=== PATIENT | female | born 1945 | race Two or more races ===

== ENCOUNTER 2020-01-25 11:12 | Inpatient (IN) | payer OTHER, MEDICARE ==
[~2020-01-25] VITALS: Wt 64.2 kg
[~2020-01-25 11:12] MED LIST: Aspirin EC81 MG PO
[2020-01-25] MEDS ORDERED: LISI5 PO (11:22)
[2020-01-25 13:30] LABS: International Normalized Ratio 1.02; Prothrombin Time Results 10.9 Sec (9.7-11.5)
[2020-01-25 13:38] LABS: Alanine Aminotransfer (ALT/SGP 59 U/L (12-78); Albumin, Blood 4.1 g/dL (3.4-5.0); Albumin/Globulin Ratio 1.1 (0.8-1.8); Alk Phos 85 U/L (50-136); Anion Gap 6 mmol/L (6-16); Aspartate Aminotrans (AST/SGOT 44 U/L (12-37); Bilirubin, Total 0.8 mg/dL (0.1-1.0); Blood Urea Nitrogen 20 mg/dL (8-24); Bun/Creatinine Ratio 28.8 (12.0-20.0); CO2, Blood 26 mmol/L (21-32); Calcium, Blood 9.4 mg/dL (8.5-10.1); Chloride, Blood 106 mmol/L (98-108); Creatinine, Blood 0.69 mg/dL (0.40-1.00); Globulin, Blood 3.9 g/dL (2.2-4.0); Glomerular Filtration Rate >60 (60-); Glucose, Blood 98 mg/dL (70-99); Potassium, Blood 4.1 mmol/L (3.5-5.5); Sodium, Blood 138 mmol/L (136-145); Troponin I <0.015 ng/mL (0.000-0.040)
[2020-01-25 13:44] LABS: Thyroid Stimulating Hormone 0.949 uIU/mL (0.360-4.800)
[2020-01-25 15:23] LABS: BASOPHILS ABSOLUTE AUTO 0.02 K/mm3 (0.00-0.23); BASOPHILS PERCENT AUTO 0 % (0-2); EOSINOPHILS ABSOLUTE AUTO 0.03 K/mm3 (0.00-0.68); EOSINOPHILS PERCENT AUTO 0 % (0-6); Hematocrit 49.7 % (33.0-51.0); Hemoglobin 16.7 g/dL (11.5-16.0); IMMATURE GRAN ABSOLUTE AUTO 0.02 K/mm3 (0.00-0.10); IMMATURE GRAN PERCENT AUTO 0 % (0-1); LYMPHOCYTES ABSOLUTE AUTO 1.02 K/mm3 (0.84-5.20); LYMPHOCYTES PERCENT AUTO 13 % (21-46); MONOCYTES ABSOLUTE AUTO 0.55 K/mm3 (0.16-1.47); MONOCYTES PERCENT AUTO 7 % (4-13); Mean Corpuscular HGB 31.1 pg (26.0-34.0); Mean Corpuscular HGB Conc 33.6 g/dL (31.5-36.5); Mean Corpuscular Volume 93 fL (80-100); Mean Platelet Volume 10.7 fL (9.1-12.4); NEUTROPHILS ABSOLUTE AUTO 6.08 K/mm3 (1.96-9.15); NEUTROPHILS PERCENT AUTO 79 % (41-73); Platelet Count 180 K/mm3 (150-400); RDW Coefficient Variation 12.9 % (11.7-14.2); RDW Standard Deviation 44.4 fL (35.1-46.3); Red Blood Cell Count 5.37 M/mm3 (3.80-5.20); White Blood Cell Count 7.72 K/mm3 (4.00-11.30)
--- NOTE | 2020-01-25 17:59 | NUR ---
Met with pt and dtr. Pt anxious and talkative. She responded well to gentle spiritual direction and prayer. [facility] will remain available.
[2020-01-26 05:00] LABS: Anion Gap 6 mmol/L (6-16); Blood Urea Nitrogen 19 mg/dL (8-24); CO2, Blood 25 mmol/L (21-32); Calcium, Blood 8.2 mg/dL (8.5-10.1); Chloride, Blood 111 mmol/L (98-108); Creatinine, Blood 0.87 mg/dL (0.40-1.00); Glomerular Filtration Rate >60 (60-); Glucose, Blood 92 mg/dL (70-99); Magnesium, Blood 2.1 mg/dL (1.6-2.4); Potassium, Blood 4.1 mmol/L (3.5-5.5); Sodium, Blood 142 mmol/L (136-145); Troponin I <0.015 ng/mL (0.000-0.040)
--- NOTE | 2020-01-26 05:06 | NUR ---
SHIFT SUMMARY: PATIENT NPO SINCE 0000, MILDLY ANXIOUS BUT ABLE TO SLEEP INTERMITTENTLY. PATIENT HR RANGED FROM 30'S TO 80'S INTERMITTENTLY THROUGHOUT THE SHIFT. PATIENT ABLE TO DO A PIVOT TRANSFER TO THE BSC WITH ONLY SBA, SOME PVC'S NOTED WITH ACTIVITY. PATIENT VSS, NO OTHER ISSUES NOTED, CALL LIGHT WITHIN REACH, BED LOW AND LOCKED.
[2020-01-26 07:41] LABS: CHOL/HDL RATIO 2.2; Cholesterol 171 mg/dL (50-200); HDL Cholesterol 79 mg/dL (>39); Low Density Lipoprotein Chol 80 mg/dL (0-110); Triglycerides 61 mg/dL (30-160); Very Low Density Lipoprot Chol 12 mg/dL (6-32)
--- NOTE | 2020-01-26 17:41 | NUR ---
SHIFT SUMMARY PATIENT S/P PACER PLACEMENT IN RIGHT UPPER CHEST THIS AFTERNOON. REPORTS MILD PAIN AT INSERTION SITE. RIGHT ARM IN SLING. DENIES SHORTNESS OF BREATH. REQUESTED JOLEEN ROMMEL FOR MILD NAUSEA. UP SBA TO BR. EATING AND DRINKING WELL. AT BEDSIDE.
--- NOTE | 2020-01-27 05:33 | NUR ---
SHIFT SUMMARY PT ABLE TO AMBULATE IN ROOM. PT STATES FEELING VERY WELL, SLIGHT PAIN AT INCISION SITE 3-5 ON PAIN SCALE CONTROLED WITH ACET. DRESSING IS CDI, PT REMAINS 100% V PACED. BP STABLE 140-150'S SYSTOLIC. PT REMAINED IN SLING THROUGH OUT NIGHT, EXPRESSED DISCOMFORT WITH SLING. OTHERWISE UNREMARKABLE, WILL CONTINUE TO MONITOR UNTIL SHIFT CHANGE.
--- NOTE | 2020-01-27 07:48 | NUR ---
pt laying in bed visiting with spouce, a/ox3, pleasant and cooperative with care, follows commands well, states she is comfortable at this time, lungs are clear t/o, resp even and unlabored, no cough noted, hrr, tele in place running paced rhythm in the 60's, no edema noted, ppp+2, cap refill <3sec, v.s. stable, afebrile, iv site to lfa is clear and patent, infusing ns as ordered, pressure dressing to right chest wall no sign of drainage or bruising, pacer was interrogated this am. kimberly miranda, call light in reach, anticipate discharge to home today.
== END 2020-01-27 13:55 | disposition home or self-care (01) | DRG 244 ==
LOC: PCU 11:12
PROVIDERS: ADMIT Internal Medicine Cardiovascular Disease
PROC: 0JH606Z Insertion of Pacemaker, Dual Chamber into Chest Subcutaneous Tissue and Fascia, Open Approach (ICD-10-PCS; principal; 2020-01-26)
PROC: 02H63JZ Insertion of Pacemaker Lead into Right Atrium, Percutaneous Approach (ICD-10-PCS; 2020-01-26)
PROC: 02HK3JZ Insertion of Pacemaker Lead into Right Ventricle, Percutaneous Approach (ICD-10-PCS; 2020-01-26)
DX: I44.2 Atrioventricular block, complete (principal); I10 Essential (primary) hypertension; E78.5 Hyperlipidemia, unspecified
CPT/HCPCS: 33208; 36415; 71045; 71046; 76937; 80048; 80053; 80061; 83735; 84443; 84484; 85025; 85610; 85730; 93306; 99152; 99153; C1785; C1894; C1898; J0461; J0690; J1644; J2250; J2785; J3010; J7030; J7040; U0002